=== PATIENT | male | born 1965 ===

== ENCOUNTER 2025-04-30 09:42 | Day surgery (SDC) | payer MEDICAID ==
[~2025-04-30 09:42] MED LIST: Sodium Chloride 0.9% 10 ML Syringe FLUSH PRN
[2025-04-30] MEDS ORDERED: Midazolam 1 MG/ML 2 ML SDV ONE (10:16)
[2025-04-30] MEDS ORDERED: Propofol 200 MG/20 ML SDV ONE (10:16)
== END 2025-04-30 12:22 | disposition home or self-care (01) ==
LOC: KA.SDS 09:42
PROVIDERS: ATTEND Surgery
DX: Z12.11 Encounter for screening for malignant neoplasm of colon (principal); D12.3 Benign neoplasm of transverse colon; K62.1 Rectal polyp; E11.9 Type 2 diabetes mellitus without complications; E03.9 Hypothyroidism, unspecified; E66.9 Obesity, unspecified; E78.5 Hyperlipidemia, unspecified; Z68.41 Body mass index [BMI] 40.0-44.9, adult; Z79.82 Long term (current) use of aspirin; Z79.890 Hormone replacement therapy; Z79.899 Other long term (current) drug therapy; Z87.891 Personal history of nicotine dependence
CPT/HCPCS: 82947; J2250; J2704; J7030